=== PATIENT | female | born 1960 | race Caucasian/White ===

== ENCOUNTER 2024-11-18 12:55 | Emergency (ER) | payer OTHER ==
[~2024-11-18] VITALS: Ht 160 cm; Wt 63.5 kg
[2024-11-18] MEDS ORDERED: Cephalexin500 M1 PO (15:41)
== END 2024-11-18 15:50 | disposition home or self-care (01) ==
LOC: ER 12:55
DX: L03.115 Cellulitis of right lower limb (principal); Z88.0 Allergy status to penicillin
CPT/HCPCS: 99281